=== PATIENT | female | born 1940 | race Asian ===

== ENCOUNTER 2017-02-06 14:58 | Outpatient (CLI) | payer OTHER ==
[~2017-02-06 14:58] MED LIST: AMLO10TA PO; BENZONATATE100 MG PO; CETI10TA PO; CIPRO500 MG PO; FLUT0.05 NAS; KLOR-CON M2020 MEQ OR; LISI10TA11 PO; MACROBID100 MG OR; SPIR25TA66 PO
[2017-02-06 15:11] LABS: POTASSIUM 4.3 mmol/L (3.6-5.2)
[2017-02-06 15:13] LABS: PLATELET COUNT 373 K/uL (152-353)
== END 2017-02-06 19:22 | disposition home or self-care (01) ==
LOC: LAB 14:58
PROVIDERS: Nurse Practitioner Family
DX: Z00.00 Encounter for general adult medical examination without abnormal findings (principal); I10 Essential (primary) hypertension; E78.4 Other hyperlipidemia; R53.83 Other fatigue; R53.81 Other malaise; R73.09 Other abnormal glucose
CPT/HCPCS: 80053; 80061; 83036; 84436; 84443; 85027

== ENCOUNTER 2017-05-08 13:44 | Outpatient (CLI) | payer OTHER ==
[2017-05-08 14:32] LABS: POTASSIUM 4.9 mmol/L (3.6-5.2)
[2017-05-08 14:50] LABS: PLATELET COUNT 371 K/uL (152-353)
== END 2017-05-08 19:38 | disposition home or self-care (01) ==
LOC: LAB 13:44
PROVIDERS: Nurse Practitioner Family
DX: Z00.00 Encounter for general adult medical examination without abnormal findings (principal); E78.4 Other hyperlipidemia; E55.9 Vitamin D deficiency, unspecified; I10 Essential (primary) hypertension; R53.83 Other fatigue; R53.81 Other malaise; Z79.899 Other long term (current) drug therapy; Z51.81 Encounter for therapeutic drug level monitoring
CPT/HCPCS: 80053; 80061; 82306; 82607; 83036; 84436; 84443; 85027

== ENCOUNTER 2018-01-30 13:03 | Outpatient (CLI) | payer OTHER ==
[2018-01-30 13:24] LABS: PLATELET COUNT 401 K/uL (152-353)
[2018-01-30 13:43] LABS: POTASSIUM 4.4 mmol/L (3.6-5.2)
== END 2018-01-30 22:27 | disposition home or self-care (01) ==
LOC: LAB 13:03
PROVIDERS: Nurse Practitioner Family
DX: E78.4 Other hyperlipidemia (principal); I10 Essential (primary) hypertension; R53.81 Other malaise; R53.83 Other fatigue; Z79.899 Other long term (current) drug therapy; Z51.81 Encounter for therapeutic drug level monitoring
CPT/HCPCS: 80053; 80061; 83036; 84436; 84443; 85027

== ENCOUNTER 2018-05-29 13:21 | Outpatient (CLI) | payer OTHER ==
[2018-05-29 13:37] LABS: PLATELET COUNT 342 K/uL (152-353)
[2018-05-29 14:21] LABS: POTASSIUM 4.3 mmol/L (3.6-5.2)
== END 2018-05-29 22:15 | disposition home or self-care (01) ==
LOC: LAB 13:21
PROVIDERS: Nurse Practitioner Family
DX: E78.4 Other hyperlipidemia (principal); I10 Essential (primary) hypertension; R53.81 Other malaise; R53.83 Other fatigue; Z79.899 Other long term (current) drug therapy; Z51.81 Encounter for therapeutic drug level monitoring
CPT/HCPCS: 80053; 80061; 83036; 84436; 84443; 85027

== ENCOUNTER 2018-06-19 09:29 | Outpatient (CLI) | payer OTHER | END 2018-06-19 19:17 | disposition home or self-care (01) | LOC: MAMMO 09:29 | DX: Z12.31 Encounter for screening mammogram for malignant neoplasm of breast (principal) ==

== ENCOUNTER 2019-02-18 08:21 | Outpatient (CLI) | payer OTHER | END 2019-02-18 19:50 | disposition home or self-care (01) | LOC: RAD 08:21 | DX: Z91.81 History of falling (principal); M25.579 Pain in unspecified ankle and joints of unspecified foot; M79.672 Pain in left foot ==

== ENCOUNTER 2020-05-21 09:47 | Outpatient (CLI) | payer OTHER | END 2020-05-21 19:40 | disposition home or self-care (01) | LOC: US 09:47 | PROVIDERS: ATTEND Nurse Practitioner Family | DX: E05.80 Other thyrotoxicosis without thyrotoxic crisis or storm (principal) ==

== ENCOUNTER 2021-12-14 08:19 | Outpatient (CLI) | payer OTHER | END 2021-12-14 18:55 | disposition home or self-care (01) | LOC: NM 08:19 | PROVIDERS: ATTEND Otolaryngology | DX: E05.80 Other thyrotoxicosis without thyrotoxic crisis or storm (principal) | CPT/HCPCS: A9516 ==

== ENCOUNTER 2022-01-13 13:28 | Outpatient (CLI) | payer OTHER ==
[2022-01-13 14:15] LABS: POTASSIUM 4.5 mmol/L (3.6-5.2); SODIUM 142 mmol/L (136-145)
== END 2022-01-13 19:39 | disposition home or self-care (01) ==
LOC: LABW 13:28
PROVIDERS: ATTEND Otolaryngology
DX: E05.90 Thyrotoxicosis, unspecified without thyrotoxic crisis or storm (principal)
CPT/HCPCS: 36415; 80053; 84439; 84443; 84480

== ENCOUNTER 2022-03-06 09:52 | Outpatient (CLI) | payer OTHER ==
[2022-03-06 10:21] LABS: PLATELET COUNT 346 K/uL (152-353)
[2022-03-06 10:28] LABS: POTASSIUM 3.9 mmol/L (3.6-5.2)
== END 2022-03-06 19:00 | disposition home or self-care (01) ==
LOC: LABW 09:52
PROVIDERS: ATTEND Internal Medicine
DX: N18.2 Chronic kidney disease, stage 2 (mild) (principal)
CPT/HCPCS: 36415; 80053; 82043; 83735; 83970; 84550; 85027; 86140

== ENCOUNTER 2022-08-03 10:04 | Outpatient (CLI) | payer OTHER ==
[2022-08-03 10:24] LABS: PLATELET COUNT 362 K/uL (152-353)
[2022-08-03 11:50] LABS: POTASSIUM 3.9 mmol/L (3.6-5.2)
== END 2022-08-03 19:10 | disposition home or self-care (01) ==
LOC: LABW 10:04
PROVIDERS: ATTEND Internal Medicine
DX: N18.2 Chronic kidney disease, stage 2 (mild) (principal)
CPT/HCPCS: 36415; 80053; 82043; 83735; 83970; 84550; 85027; 86140

== ENCOUNTER 2022-09-26 11:36 | Outpatient (CLI) | payer OTHER | END 2022-09-26 20:59 | disposition home or self-care (01) | LOC: RAD 11:36 | PROVIDERS: ATTEND Nurse Practitioner Family | DX: E11.9 Type 2 diabetes mellitus without complications (principal); M25.562 Pain in left knee; E78.49 Other hyperlipidemia; E05.80 Other thyrotoxicosis without thyrotoxic crisis or storm; I10 Essential (primary) hypertension ==

== ENCOUNTER 2023-01-17 09:54 | Outpatient (CLI) | payer OTHER ==
[2023-01-17 10:31] LABS: PLATELET COUNT 432 K/uL (152-353)
[2023-01-17 11:07] LABS: POTASSIUM 4.4 mmol/L (3.6-5.2)
== END 2023-01-17 22:52 | disposition home or self-care (01) ==
LOC: LABW 09:54
PROVIDERS: ATTEND Internal Medicine
DX: N18.2 Chronic kidney disease, stage 2 (mild) (principal); R53.83 Other fatigue
CPT/HCPCS: 36415; 80053; 82043; 82306; 82607; 82728; 83540; 83550; 83735; 83970; 84439; 84443; 84550; 85027; 85652; 86038; 86140

== ENCOUNTER 2023-07-04 11:49 | Outpatient (CLI) | payer OTHER | END 2023-07-04 19:04 | disposition home or self-care (01) | LOC: MAMMO 11:49 | PROVIDERS: ATTEND Nurse Practitioner Family | DX: Z12.31 Encounter for screening mammogram for malignant neoplasm of breast (principal) ==

== ENCOUNTER 2023-07-19 09:44 | Outpatient (CLI) | payer OTHER | END 2023-07-19 19:35 | disposition home or self-care (01) | LOC: RAD 09:44 | PROVIDERS: ATTEND Nurse Practitioner Family | DX: Z13.820 Encounter for screening for osteoporosis (principal); N95.8 Other specified menopausal and perimenopausal disorders ==